=== PATIENT | female | born 1985 | race Caucasian/White ===

== ENCOUNTER 2022-06-14 14:32 | Emergency (ER) | payer MEDICAID ==
[~2022-06-14] VITALS: Ht 167.6 cm; Wt 89.0 kg
[2022-06-14 14:53] VITALS: BP 130/90
[2022-06-14] MEDS ORDERED: FAMO-135 MT (18:35)
== END 2022-06-14 18:48 | disposition home or self-care (01) ==
LOC: ER 14:41
DX: K21.9 Gastro-esophageal reflux disease without esophagitis (principal)
CPT/HCPCS: 99283